=== PATIENT | male | born 1965 | race Caucasian/White ===

== ENCOUNTER 2018-09-04 14:49 | Outpatient (CLI) | payer BC, SELFPAY ==
[2018-09-04 16:40] LABS: Anion Gap 9.6 mmol/L (3-11); BUN 15 mg/dL (7-18); CO2 30.4 mmol/L (21.0-32.0); CREATININE 0.95 mg/dL (0.70-1.30); Calcium 9.3 mg/dL (8.5-10.1); Chloride 101 mmol/L (98-107); Cholesterol 198 mg/dL (50-200); Glucose 86 mg/dL (70-100); HDL Cholesterol 56 mg/dL (40-60); LDL CHOLESTEROL 119 mg/dL (<100); Potassium 4.2 mmol/L (3.5-5.1); Sodium 141 mmol/L (136-145); Triglyceride 141 mg/dL (30-150)
[2018-09-05 10:51] LABS: HIV-1/2 Ag & Ab Screen Negative (NEGAT)
[2018-09-05 10:54] LABS: Hepatitis C Ab w Rflx HCV PCR Negative (NEGAT)
== END 2018-09-04 15:09 ==
PROVIDERS: PCP Nurse Practitioner Family; Visit Provider Nurse Practitioner Family
DX: Z13.220 Encounter for screening for lipoid disorders (principal); Z13.228 Encounter for screening for other metabolic disorders; Z11.59 Encounter for screening for other viral diseases; Z11.4 Encounter for screening for human immunodeficiency virus [HIV]
CPT/HCPCS: 36415; 80048; 80061; 83721; 86803; 87389

== ENCOUNTER 2019-08-17 15:54 | Outpatient (CLI) | payer BC, SELFPAY ==
--- NOTE | 2019-08-17 16:00 | DI.RAD_ITS ---
EXAM: XR CHEST 2V PA LATERAL INDICATION: Hx walking pneumonia, sinius/chest congestion, respiratory crackles, cough,. COMPARISON: CHEST 2 VIEWS PA,LAT from 04/28/2015 TECHNIQUE: 2D digital imaging was performed. FINDINGS: The heart size is within normal limits. The aorta is mildly tortuous. The lungs are moderately w ell inflated and appear clear. No infiltrate effusion or pulmonary edema is seen. No there are no v isible emphysematous or fibrotic changes. There are mild degenerative changes in the thoracic spine. IMPRESSION: Negative chest x-ray. DATA REPOSITORY: RADIATION DOSE DELIVERED:
== END 2019-08-17 16:14 ==
PROVIDERS: PCP Nurse Practitioner Family; Visit Provider Student in an Organized Health Care Education/Training Program
DX: R05 Cough (principal); R09.89 Other specified symptoms and signs involving the circulatory and respiratory systems; Z87.01 Personal history of pneumonia (recurrent)
CPT/HCPCS: 71046

== ENCOUNTER 2020-03-25 09:07 | Outpatient (CLI) | payer BC, SELFPAY ==
[2020-03-27 12:46] LABS: Patient Race White; SARS-CoV-2 RNA Undetected (Undetected); SARS-CoV-2 Specimen Source Nasopharynx
== END 2020-03-25 09:27 ==
PROVIDERS: PCP Nurse Practitioner Family; Visit Provider Family Medicine
DX: Z11.59 Encounter for screening for other viral diseases (principal)
CPT/HCPCS: U0003

== ENCOUNTER 2022-12-10 10:20 | Outpatient (CLI) | payer OTHER, SELFPAY ==
[2022-12-10 09:29] LABS: Abs Immature Grans 0.01 10^3/uL (0.0-0.06); Absolute Basophil Count 0.07 10^3/uL (0.0-0.2); Absolute Eosinophil Count 0.22 10^3/uL (0.0-0.7); Absolute Lymphocyte Count 1.76 10^3/uL (1.2-3.4); Absolute Monocyte Count 0.49 10^3/uL (0.1-0.8); Absolute Neutrophil Count 3.57 10^3/uL (1.2-6.7); Basophils % 1.1; Eosinophils % 3.6; HGB 14.7 g/dL (13.5-17.5); Immature Grans % 0.2; Lymphocytes % 28.8; MCH 30.7 pg (27.0-33.0); MCHC 34.2 % (32.0-36.0); MCV 90 fL (80-95); Neutrophils % 58.3; Platelet Count 223 10^3/uL (130-400); RBC 4.79 10^6/uL (4.36-5.78); RDW 12.2 % (11.8-14.1); RDW-SD 40.1 fL; WBC 6.12 10^3/uL (4.4-10.8)
[2022-12-10 10:28] LABS: ALT 27 U/L (16-63); AST 17 U/L (15-37); Albumin 4.1 g/dL (3.4-5.0); Alkaline Phosphatase 96 U/L (46-116); Anion Gap 8.6 mmol/L (3-11); BUN 21 mg/dL (7-18); Bilirubin, Total 0.4 mg/dL (0.2-1.0); CO2 27.4 mmol/L (21.0-32.0); Calcium 9.6 mg/dL (8.5-10.1); Calculated LDL 117 mg/dL (<100); Chloride 104 mmol/L (98-107); Cholesterol 183 mg/dL (<200); Glucose 106 mg/dL (74-106); HDL Cholesterol 54 mg/dL (40-60); Potassium 4.4 mmol/L (3.5-5.1); Sodium 140 mmol/L (136-145); TSH (W/Ref FT4) 2.11 uIU/mL (0.36-3.74); Total Protein 7.6 g/dL (6.4-8.2); Triglyceride 60 mg/dL (<150)
== END 2022-12-10 10:21 | disposition home or self-care (01) ==
LOC: LBO 10:20
PROVIDERS: PCP Nurse Practitioner Family; Visit Provider Nurse Practitioner Family
DX: E78.5 Hyperlipidemia, unspecified (principal); I10 Essential (primary) hypertension; R53.83 Other fatigue; Z13.1 Encounter for screening for diabetes mellitus
CPT/HCPCS: 36415; 80053; 80061; 84443; 85025